=== PATIENT | female | born 1980 | race African-American/Black ===

== ENCOUNTER 2017-08-22 00:09 | Emergency (ER) | payer OTHER ==
--- NOTE | 2017-08-22 00:31 | PDOC ---
History of Present Illness - General History Source: Patient Exam Limitations: No Limitations - History of Present Illness Initial Comments: 08/22/17 01:47 The patient is a 37 year old female (smoker), with no significant past medical history, who presents to the emergency department with, intermittent chest pain beginning today. The patient reports the intermittent chest pain radiates down the right arm and up to her neck. The patient reports mild associated shortness of breath secondary to the chest pain. The patient reports she has history of hypertension and DM in her family. The patient reports she has heavy menstrual periods that have been occurring more frequently with her LMP approx. 2 days ago. She denies recent fevers, chills, headache or dizziness. She denies recent nausea, vomit, diarrhea or constipation. She denies recent dysuria, frequency, urgency or hematuria. She denies recent swelling or calf tenderness. Allergies: NKA Primary Care Physician: Dr. Antonio Jimenez <Farooq Doty - Last Filed: 08/22/17 01:47> <Kelly Andrew - Last Filed: 08/22/17 04:35> - General Chief Complaint: Chest Pain Stated Complaint: CHEST PAIN Time Seen by Provider: 08/22/17 00:27 Past History <Farooq Doty - Last Filed: 08/22/17 01:47> <Kelly Andrew - Last Filed: 08/22/17 04:35> - Past Medical History Allergies/Adverse Reactions: Allergies Allergy/AdvReac Type Severity Reaction Status Date / Time No Known Allergies Allergy Verified 08/22/17 00:30 Home Medications: Ambulatory Orders NK [No Known Home Medication] 08/22/17 Review of Systems - Review of Systems Comments:: 08/22/17 01:49 GENERAL/CONSTITUTIONAL: No fever or chills. No weakness. HEAD, EYES, EARS, NOSE AND THROAT: No change in vision. No ear pain or discharge. No sore throat. CARDIOVASCULAR: +Chest pain. +Mild shortness of breath. RESPIRATORY: No cough, wheezing, or hemoptysis. GASTROINTESTINAL: No nausea, vomiting, diarrhea or constipation. GENITOURINARY: No dysuria, frequency, or change in urination. MUSCULOSKELETAL: No joint or muscle swelling or pain. No neck or back pain. SKIN: No rash NEUROLOGIC: No headache, vertigo, loss of consciousness, or change in strength/ sensation. ENDOCRINE: No increased thirst. No abnormal weight change. HEMATOLOGIC/LYMPHATIC: No anemia, easy bleeding, or history of blood clots. ALLERGIC/IMMUNOLOGIC: No hives or skin allergy. <Farooq Doty - Last Filed: 08/22/17 01:47> *Physical Exam - Vital Signs Last Vital Signs Temp Pulse Resp BP Pulse Ox 97.6 F 74 20 124/92 99 08/22/17 00:30 08/22/17 00:30 08/22/17 00:30 08/22/17 00:30 08/22/17 00:30 - Physical Exam Comments: 08/22/17 01:50 GENERAL: +Very pale lips, whiter than pink. Awake, alert, and fully oriented, in no acute distress HEAD: No signs of trauma EYES: PERRLA, EOMI, sclera anicteric, conjunctiva clear ENT: Auricles normal inspection, hearing grossly normal, nares patent, oropharynx clear without exudates. Moist mucosa NECK: Normal ROM, supple, no lymphadenopathy, JVD, or masses LUNGS: Breath sounds equal, clear to auscultation bilaterally. No wheezes, and no crackles HEART: Regular rate and rhythm, normal S1 and S2, no murmurs, rubs or gallops ABDOMEN: Soft, nontender, normoactive bowel sounds. No guarding, no rebound. No masses EXTREMITIES: Normal range of motion, no edema. No clubbing or cyanosis. No cords, erythema, or tenderness NEUROLOGICAL: Cranial nerves II through XII grossly intact. Normal speech, normal gait SKIN: Warm, Dry, normal turgor, no rashes or lesions noted. <Farooq Doty - Last Filed: 08/22/17 01:47> Procedures - Joint Reduction Left Progress: 08/22/17 01:44 Follow with podiatrisy <Kelly Andrew - Last Filed: 08/22/17 04:35> ED Treatment Course - LABORATORY CBC & Chemistry Diagram: 08/22/17 01:44 08/22/17 01:44 <Kelly Andrew - Last Filed: 08/22/17 04:35> *DC/Admit/Observation/Transfer - Attestations Scribe Attestion: 08/22/17 01:51 Documentation prepared by Farooq Doty, acting as medical donation professional for Kelly Andrew MD. <Farooq Doty - Last Filed: 08/22/17 01:47> <Kelly Andrew - Last Filed: 08/22/17 04:35> - Referrals Referrals: Antonio Jimenez MD [Primary Care Provider] -
[2017-08-22 01:00] VITALS: BMI 22.3
[2017-08-22] MEDS ORDERED: ONDANSETRON *ODT* 4 MG TABLET SL ONE (01:50)
[2017-08-22] MEDS ORDERED: ONDANSETRON *ODT* 4 MG TABLET ONE (01:51)
[2017-08-22 01:55] LABS: BASO % 0.8 % (0-2.0); EOS % 5.8 % (0-4.5); HEMATOCRIT 24.4 % (32.4-45.2); HEMOGLOBIN 7.3 GM/dL (10.7-15.3); LYMPH % 32.5 % (8-40); MCHC 29.9 g/dl (32.0-36.0); MEAN CELL VOLUME 58.9 fl (80-96); MEAN PLT VOLUME 8.7 fl (7.5-11.1); MONO % 9.4 % (3.8-10.2); NEUT % 51.5 % (42.8-82.8); PLATELET COUNT 273 K/MM3 (134-434); RBC 4.14 M/mm3 (3.60-5.2); RDW 19.8 % (11.6-15.6); WHITE BLOOD COUNT 5.5 K/mm3 (4.0-10.0)
[2017-08-22 01:59] LABS: ADD RBC MORPHOLOGY YES; MCH 17.6 pg (25.7-33.7)
[2017-08-22 02:01] LABS: ANISOCYTOSIS 1+
[2017-08-22 02:12] LABS: INR 1.01 (0.82-1.09); PROTHROMBIN TIME (PATIENT) 11.4 SEC (9.98-11.88)
[2017-08-22 02:39] LABS: ALBUMIN 3.2 g/dl (3.4-5.0); ANION GAP 4 (8-16); BILIRUBIN,TOTAL 0.2 mg/dL (0.2-1.0); BLOOD UREA NITROGEN 13 mg/dL (7-18); CALCIUM 8.1 mg/dL (8.5-10.1); CHLORIDE 108 mmol/L (98-107); CO2 28 mmol/L (21-32); GLUCOSE,RANDOM 89 mg/dL (74-106); POTASSIUM 4.1 mmol/L (3.5-5.1); SGOT/AST 26 U/L (15-37); SGPT/ALT 20 U/L (12-78); SODIUM 140 mmol/L (136-145); TOT PROT 7.1 g/dl (6.4-8.2)
[2017-08-22 02:41] LABS: ALK PHOS 46 U/L (45-117)
[2017-08-22 08:48] LABS: BASO % 0.7 % (0-2.0); EOS % 5.7 % (0-4.5); HEMOGLOBIN 7.3 GM/dL (10.7-15.3); LYMPH % 42.3 % (8-40); MCHC 29.2 g/dl (32.0-36.0); MEAN CELL VOLUME 59.3 fl (80-96); MEAN PLT VOLUME 8.3 fl (7.5-11.1); MONO % 12.6 % (3.8-10.2); NEUT % 38.7 % (42.8-82.8); PLATELET COUNT 261 K/MM3 (134-434); RBC 4.22 M/mm3 (3.60-5.2); WHITE BLOOD COUNT 5.8 K/mm3 (4.0-10.0)
[2017-08-22 08:51] LABS: MCH 17.3 pg (25.7-33.7)
--- NOTE | 2017-08-22 09:17 | PDOC ---
*Physical Exam - Vital Signs Last Vital Signs Temp Pulse Resp BP Pulse Ox 97.6 F 74 20 124/92 99 08/22/17 00:30 08/22/17 00:30 08/22/17 00:30 08/22/17 00:30 08/22/17 00:30 - Physical Exam Comments: 08/22/17 09:11 "GENERAL: Awake, alert, and fully oriented, in no acute distress HEAD: No signs of trauma EYES: PERRLA, EOMI, sclera anicteric, conjunctiva clear ENT: Auricles normal inspection, hearing grossly normal, nares patent, oropharynx clear without exudates. Moist mucosa NECK: Nontender, no stepoffs, Normal ROM, supple, no lymphadenopathy, JVD, or masses LUNGS: Breath sounds equal, clear to auscultation bilaterally. No wheezes, and no crackles HEART: Regular rate and rhythm, normal S1 and S2, no murmurs, rubs or gallops ABDOMEN: Soft, nontender, normoactive bowel sounds. No guarding, no rebound. No masses EXTREMITIES: Normal range of motion, no edema. No clubbing or cyanosis. No cords, erythema, or tenderness NEUROLOGICAL: Cranial nerves II through XII intact. 5/5 strength and sensation in all extremities, Normal speech, normal gait SKIN: Warm, Dry, normal turgor, no rashes or lesions noted. " ED Treatment Course - LABORATORY CBC & Chemistry Diagram: 08/22/17 08:30 08/22/17 01:44 - ADDITIONAL ORDERS Additional order review: Laboratory Results 08/22/17 08/22/17 08/22/17 01:44 01:44 01:44 PT with INR INR Sodium 140 Potassium 4.1 Chloride 108 H Carbon Dioxide 28 Anion Gap 4 L BUN 13 Creatinine 1.0 Creat Clearance w eGFR > 60 Random Glucose 89 Calcium 8.1 L Total Bilirubin 0.2 AST 26 ALT 20 Alkaline Phosphatase 46 Creatine Kinase 98 Troponin I < 0.02 Total Protein 7.1 Albumin 3.2 L Serum , Qual Negative Blood Type B POSITIVE Antibody Screen Negative 08/22/17 01:44 PT with INR 11.40 INR 1.01 Sodium Potassium Chloride Carbon Dioxide Anion Gap BUN Creatinine Creat Clearance w eGFR Random Glucose Calcium Total Bilirubin AST ALT Alkaline Phosphatase Creatine Kinase Troponin I Total Protein Albumin Serum , Qual Blood Type Antibody Screen 08/22/17 08/22/17 08:30 01:44 RBC 4.22 4.14 MCV 59.3 L 58.9 L MCHC 29.2 L 29.9 L RDW 20.0 H 19.8 H MPV 8.3 8.7 Neutrophils % 38.7 L D 51.5 Lymphocytes % 42.3 H D 32.5 Monocytes % 12.6 H 9.4 Eosinophils % 5.7 H 5.8 H Basophils % 0.7 0.8 - Medications Given in the ED: ED Medications Discontinued Medications Generic Name Dose Route Start Last Admin Trade Name Donald PRN Reason Stop Dose Admin Ondansetron HCl 8 mg 08/22/17 01:50 08/22/17 01:50 Zofran Odt - SL 08/22/17 01:51 8 mg NOW ONE Administration Medical Decision Making - Medical Decision Making 08/22/17 09:12 Sign out taken from Dr. Andrew at 7am. 37 F with chest pain. - CXR and trop negative - Pt found to have Hb 7.3 - Pt reports known h/o anemia but is unsure of her last CBC - Repeat CBC after 7 hours stable, with Hb 7.3 - Pt reassessed, now reports resolution of chest pain. - Rpt trop negative - Pt well appearing, with normal vitals. Clinically stable for DC. I discussed the physical exam findings, ancillary test results and final diagnoses with the patient. I answered all of the patient's questions. The patient was satisfied with the care received and felt comfortable with the discharge plan and treatment plan. The patient agrees to follow up with the primary care physician within 24-72 hours. *DC/Admit/Observation/Transfer Diagnosis at time of Disposition: Anemia - Discharge Dispostion Disposition: HOME - Referrals Referrals: Antonio Jimenez MD [Primary Care Provider] - - Patient Instructions Printed Discharge Instructions: DI for Atypical Chest Pain Additional Instructions: Please follow up with your primary doctor immediately for further evaluation of your chest pain and anemia. Your blood count showed a hemoglobin of 7.3 today. This was stable over 8 hours , which means you are likely not having any significant blood loss at the moment. However, if you experience any chest pain, shortness of breath, lightheadedness , or any other concerning symptoms, return to the ER immediately. Otherwise, make an appointment with your primary doctor within 48 hours to have your bloodwork rechecked. - Post Discharge Activity - Attestations Physician Attestion: 08/22/17 09:17 I, Dr. Edin Bautista MD, attest that this document has been prepared under my direction and personally reviewed by me in its entirety. I further attest, that it accurately reflects all work, treatment, procedures and medical decision -making performed by me.
[2017-08-22 09:26] VITALS: BP 115/73; PULSE 73; TEMP 98.1
--- NOTE | 2017-08-22 15:10 | EKG ---
Test Reason : Blood Pressure : / mmHG Vent. Rate : 073 BPM Atrial Rate : 073 BPM P-R Int : 144 ms QRS Dur : 078 ms QT Int : 380 ms P-R-T Axes : 055 048 050 degrees QTc Int : 418 ms NORMAL SINUS RHYTHM NORMAL ECG NO PREVIOUS ECGS AVAILABLE Confirmed by Brandon Gonzalez ([id number]) on 08/22/2017 3:10:17 PM Referred By: Confirmed By:Brandon Gonzalez
== END 2017-08-22 09:34 | disposition home or self-care (01) ==
LOC: JER 00:09
DX: D64.9 Anemia, unspecified (principal)
CPT/HCPCS: 36415; 80053; 82550; 84484; 84703; 85025; 85610; 86850; 86900; 86901; 93005; 93010; 99282-25

== ENCOUNTER 2018-03-09 14:45 | Inpatient (IN) | payer OTHER ==
--- NOTE | 2018-03-09 14:58 | PDOC ---
Rapid Medical Evaluation Time Seen by Provider: 03/09/18 14:53 Medical Evaluation: Allergies Allergy/AdvReac Type Severity Reaction Status Date / Time lactose Allergy Verified 11/24/17 14:46 I have performed a brief in-person evaluation of this patient. The patient presents with a chief complaint of: sent in by doctor for possible blood transfusion. Have had transfusions in the past for anemia. Hx of uterine fibroids and currently has vaginal bleeding. Pertinent physical exam findings: none I have ordered the following: labs The patient will proceed to the ED for further evaluation. Discharge Disposition - Diagnosis Anemia - Referrals - Patient Instructions - Post Discharge Activity
--- NOTE | 2018-03-09 15:49 | PDOC ---
History of Present Illness - General Chief Complaint: Revisit, Lab Variance Stated Complaint: PCP SENT/BLOOD TRANSFUSION Time Seen by Provider: 03/09/18 14:53 History Source: Patient Exam Limitations: No Limitations - History of Present Illness Initial Comments: 03/09/18 16:12 37 year old female A3 with PMH uterine fibroids, anemia, blood transfusion sent to ED by PCP for low hemoglobin. She complains of vaginal bleeding since yesterday, requiring 18 pads a day, with clots. She also complains of lower abdominal pain, pelvic pain, lightheadedness, dizziness, blurry vision, headache , PARKER, generalized weakness. She denies nausea, vomiting, diarrhea, chest pain. PCP - Dr. Jimenez Allergies - Lactose Past History - Past Medical History Allergies/Adverse Reactions: Allergies Allergy/AdvReac Type Severity Reaction Status Date / Time lactose Allergy Verified 03/09/18 14:56 Anemia: Yes COPD: No Other medical history: fibroids - Suicide/Smoking/Psychosocial Hx Smoking History: Current every day smoker Have you smoked in the past 12 months: Yes Number of Cigarettes Smoked Daily: 5 Information on smoking cessation initiated: No Hx Alcohol Use: No Drug/Substance Use Hx: No Substance Use Type: None Review of Systems - Review of Systems Able to Perform ROS?: Yes Comments:: 03/09/18 16:18 General: admits to generalized weakness. denies fever, chills, night sweats. HEENT: denies sore throat, rhinorrhea, ear pain. Heart: denies chest pain, palpitations, syncope, lower extremity swelling, diaphoresis. Respiratory: admits to shortness of breath, PARKER. denies cough, sputum production , hematemesis. Abdomen: admits to abdominal pain. denies nausea, vomiting, diarrhea, constipation, blood in stool. : admits to vaginal bleeding and pelvic pain. denies dysuria, increased urinary frequency, hematuria, urinary incontinence, flank pain. Back: denies back pain, flank pain. Musculoskeletal: denies joint pain, muscle pain, joint swelling. Neurological: admits to headache and dizzines. denies numbness, tingling, weakness. Skin: denies rash, laceration, abrasion. *Physical Exam - Vital Signs Last Vital Signs Temp Pulse Resp BP Pulse Ox 98.8 F 88 17 132/78 100 03/09/18 14:54 03/09/18 14:54 03/09/18 14:54 03/09/18 14:54 03/09/18 14:54 - Physical Exam Comments: 03/09/18 16:19 Appearance: comfortable. HEENT: head is normocephalic, atraumatic. EOMI. PERRLA. pale conjunctiva. Neck: supple. Full ROM. Heart: regular rhythm. no murmurs, rubs or gallops. No pericardial friction rub. Lungs: clear to auscultation bilaterally. no crackles, rhonchi or wheezing. no stridor. Abdomen: soft, flat. tenderness to palpation of suprapubic area and LLQ. normal bowel sounds. no rebound, guarding, masses. Extremities: Peripheral pulses intact. No lower extremity edema. Neurological: Alert. Oriented x3. CN 2-12 grossly intact. Moves all four extremities. ED Treatment Course - LABORATORY CBC & Chemistry Diagram: 03/09/18 16:09 03/09/18 16:09 Medical Decision Making - Medical Decision Making 03/09/18 16:23 37 year old female with PMH uterine fibroids, anemia requiring blood transfusion sent to ED by PCP for low hgb. Initial Vital Signs Temp Pulse Resp BP Pulse Ox 98.8 F 88 17 132/78 100 03/09/18 14:54 03/09/18 14:54 03/09/18 14:54 03/09/18 14:54 03/09/18 14:54 -Afebrile. No tachycardia. No hypotension. No hypoxia. -Pending labs, urine test, pelvic examination, TVUS. 03/09/18 17:54 -Hgb 5.4 -2 Units PRBC ordered -Pelvic examination performed, no pooling of blood, cervix not visualized. On bi -manual examination tenderness to left adnexa, possible fibroid palpated. -OBGYN consulted. I spoke with Dr. Gonzalez, who will accept the consult. 03/09/18 18:13 -UA negative for UTI or blood. -Pending TVUS. -Pending EKG. -Pending urine preg. 03/09/18 18:54 -Urine test negative. -Pt will be admitted for anemia requiring blood transfusion. 03/09/18 19:06 TVUS report - small uterine fibroid. 03/09/18 19:[address] Lim, who will take over care for the patient. The patient will be admitted to Dr. Kwon. *DC/Admit/Observation/Transfer Diagnosis at time of Disposition: Anemia, History of uterine fibroid, Vaginal bleeding - Discharge Dispostion Condition at time of disposition: Guarded Decision to Admit order: Yes - Referrals Referrals: Antonio Jimenez MD [Primary Care Provider] - - Patient Instructions - Post Discharge Activity
[2018-03-09] MEDS ORDERED: ACETAMINOPHEN 1000 MG/100 ML VIAL (NON FORMULARY) IVPB ONE (16:12)
[2018-03-09 16:55] LABS: BASO % 0.8 % (0-2.0); EOS % 2.2 % (0-4.5); HEMATOCRIT 18.7 % (32.4-45.2); LYMPH % 53.7 % (8-40); MCHC 28.7 g/dl (32.0-36.0); MEAN CELL VOLUME 54.7 fl (80-96); MEAN PLT VOLUME 8.7 fl (7.5-11.1); MONO % 12.5 % (3.8-10.2); NEUT % 30.8 % (42.8-82.8); PLATELET COUNT 280 K/MM3 (134-434); RBC 3.41 M/mm3 (3.60-5.2); RDW 20.6 % (11.6-15.6); WHITE BLOOD COUNT 5.3 K/mm3 (4.0-10.0)
--- NOTE | 2018-03-09 17:02 | PDOC ---
History of Present Illness - General Chief Complaint: Revisit, Lab Variance Stated Complaint: PCP SENT/BLOOD TRANSFUSION Time Seen by Provider: 03/09/18 14:53 Past History - Past Medical History Allergies/Adverse Reactions: Allergies Allergy/AdvReac Type Severity Reaction Status Date / Time lactose Allergy Verified 03/09/18 14:56 Home Medications: Ambulatory Orders Fluconazole [Diflucan] 150 mg PO ONCE #1 tablet 11/24/17 Ibuprofen 800 mg PO ACDIN 7 Days #21 tablet 11/24/17 Sulfamethoxazole/Trimethoprim [Bactrim Ds -] 1 tab PO BID #14 tablet 11/24/17 Anemia: Yes COPD: No Other medical history: fibroids - Suicide/Smoking/Psychosocial Hx Smoking History: Current every day smoker Have you smoked in the past 12 months: Yes Number of Cigarettes Smoked Daily: 5 Information on smoking cessation initiated: No Hx Alcohol Use: No Drug/Substance Use Hx: No Substance Use Type: None *Physical Exam - Vital Signs Last Vital Signs Temp Pulse Resp BP Pulse Ox 98.8 F 88 17 132/78 100 03/09/18 14:54 03/09/18 14:54 03/09/18 14:54 03/09/18 14:54 03/09/18 14:54 ED Treatment Course - LABORATORY CBC & Chemistry Diagram: 03/09/18 16:09 03/09/18 16:09 *DC/Admit/Observation/Transfer Diagnosis at time of Disposition: Anemia - Referrals Referrals: Antonio Jimenez MD [Primary Care Provider] - - Patient Instructions - Post Discharge Activity
--- NOTE | 2018-03-09 17:04 | PDOC ---
Attending Attestation - Resident Resident Name: Madonna Gramajo - ED Attending Attestation I have performed the following: I have examined & evaluated the patient, The case was reviewed & discussed with the resident, I agree w/resident's findings & plan, Exceptions are as noted - HPI HPI: 03/09/18 17:43 The patient is a 37 year old A3 female with a past medical history of uterine fibroids c/b anemia requiring blood transfusions who presents to the emergency department for evaluation of low hemoglobin. The patient reports vaginal bleeding and lower abdominal pain since yesterday. She reports associated symptoms of dyspnea on exertion, generalized weakness, gradual generalized headache, pelvic pain, and lightheadness. Patient was sent to the emergency department by her PCP due to anemia. Of note, patient states she has required 18 pads/day. The patient denies chest pain, fever, chills, nausea, vomiting, diarrhea, and constipation. Allergies: Lactose PCP: Dr. Antonio Jimenez - Physicial Exam PE: 03/09/18 17:45 GENERAL: Awake, alert, and fully oriented, in no acute distress EYES: PERRLA, EOMI, sclera anicteric, pale conjunctiva ENT: Auricles normal inspection, hearing grossly normal, nares patent, oropharynx clear without exudates. Moist mucosa LUNGS: Breath sounds equal, clear to auscultation bilaterally. No wheezes, and no crackles HEART: Regular rate and rhythm, normal S1 and S2, no murmurs, rubs or gallops ABDOMEN: Soft, nontender, normoactive bowel sounds. No guarding, no rebound. No masses PELVIC: see Dr. Gramajo note EXTREMITIES: Normal range of motion, no edema. No clubbing or cyanosis. No cords , erythema, or tenderness BACK: No midline spinal tenderness in cervical/thoracic/lumbar region NEUROLOGICAL: Normal speech, cranial nerves intact, negative pronator drift, 5/ 5 strength in all 4 extremities, normal sensation to light touch in all 4 extremities, normal cerebellar exam, normal gait, normal reflexes and tone SKIN: Warm, Dry, normal turgor, no rashes or lesions noted. - Medical Decision Making 03/09/18 17:47 37yo F hx fibroids c/b anemia presents to the ED with symptoamtic anemia, hgb 5.4. Plan -transfuse -labs -c/s HYDRAULIC BLOCKER -admit
[2018-03-09 17:14] LABS: ALBUMIN 3.2 g/dl (3.4-5.0); ANION GAP 8 (8-16); BLOOD UREA NITROGEN 11 mg/dL (7-18); CALCIUM 8.5 mg/dL (8.5-10.1); CHLORIDE 110 mmol/L (98-107); CO2 25 mmol/L (21-32); CREATININE 0.8 mg/dL (0.55-1.02); GLUCOSE,RANDOM 80 mg/dL (74-106); POTASSIUM 3.9 mmol/L (3.5-5.1); SGOT/AST 34 U/L (15-37); SGPT/ALT 24 U/L (12-78); SODIUM 143 mmol/L (136-145)
[2018-03-09 17:15] LABS: ALK PHOS 49 U/L (45-117); BILIRUBIN,TOTAL 0.4 mg/dL (0.2-1.0); TOT PROT 7.4 g/dl (6.4-8.2)
[2018-03-09 17:26] LABS: MCH 15.7 pg (25.7-33.7)
[2018-03-09 17:28] LABS: HEMOGLOBIN 5.4 GM/dL (10.7-15.3)
[2018-03-09] MEDS ORDERED: ACETAMINOPHEN INJECTION 100 ML IVPB ONE (17:57)
[2018-03-09 18:08] LABS: URINE APPEARANCE SLCLOUDY; URINE BILIRUBIN NEGATIVE (<2.0 mg/dL); URINE COLOR LTYELLOW; URINE GLUCOSE (UA) NEGATIVE (NEGATIVE); URINE KETONE NEGATIVE (NEGATIVE); URINE LEUK ESTERASE NEGATIVE (NEGATIVE); URINE NITRITE NEGATIVE (NEGATIVE); URINE PROTEIN NEGATIVE (NEGATIVE)
--- NOTE | 2018-03-09 21:23 | HP ---
CHIEF COMPLAINT: vaginal bleeding HISTORY OF PRESENT ILLNESS: 37 year old female () with a history of anemia and uterine fibroid presents for excessive vaginal bleeding and abdominal pain for 1 day. She states that she had to use an entire box of pads over the past day and soaked each one. Reports that she has been having abnormal bleeding for one year duration but it had not gotten worse until yesterday. She reports lower abdominal pain, non- radiating bilaterally and rates it at a 5/10 in severity. Does not associate it with food or any other inciting cause. Reports having blood transfusions over 10 years ago during one of her pregnancies. Denies chest pain, SOB, nausea, vomiting, diarrhea, fevers. Reports being cold. ER course was notable for: (1) Hgb 5.4 (2) (3) Recent Travel: denies PAST MEDICAL HISTORY: anemia, fibroid PAST SURGICAL HISTORY: 2 C sections Social History: Smokin cigarettes a day for 6 years Alcohol: denies Drugs: denies Family History: DM and HTN in mother, DM/HTN in father Allergies lactose Allergy (Verified 03/09/18 14:56) HOME MEDICATIONS: REVIEW OF SYSTEMS CONSTITUTIONAL: Absent: fever, chills, diaphoresis, generalized weakness, malaise, loss of appetite, weight change HEENT: Absent: rhinorrhea, nasal congestion, throat pain, throat swelling, difficulty swallowing, mouth swelling, ear pain, eye pain, visual changes CARDIOVASCULAR: Absent: chest pain, syncope, palpitations, irregular heart rate, lightheadedness , peripheral edema RESPIRATORY: Absent: cough, shortness of breath, dyspnea with exertion, orthopnea, wheezing, stridor, hemoptysis GASTROINTESTINAL: Absent: abdominal pain, abdominal distension, nausea, vomiting, diarrhea, constipation, melena, hematochezia GENITOURINARY: Absent: dysuria, frequency, urgency, hesitancy, hematuria, flank pain, genital pain MUSCULOSKELETAL: Absent: myalgia, arthralgia, joint swelling, back pain, neck pain SKIN: Absent: rash, itching, pallor HEMATOLOGIC/IMMUNOLOGIC: Absent: easy bleeding, easy bruising, lymphadenopathy, frequent infections ENDOCRINE: Absent: unexplained weight gain, unexplained weight loss, heat intolerance, cold intolerance NEUROLOGIC: Absent: headache, focal weakness or paresthesias, dizziness, unsteady gait, seizure, mental status changes, bladder or bowel incontinence PSYCHIATRIC: Absent: anxiety, depression, suicidal or homicidal ideation, hallucinations. PHYSICAL EXAMINATION Vital Signs - 24 hr 03/09/18 14:54 Temperature 98.8 F Pulse Rate 88 Respiratory 17 Rate Blood Pressure 132/78 O2 Sat by Pulse 100 Oximetry (%) GENERAL: A&Ox3, no acute distress EYES: PERRLA, EOMI ENT: Moist mucus membranes NECK: No JVD LUNGS: CTA, no wheezes HEART: RRR, no murmurs ABDOMEN: Soft, mildly tender to palpation in hypogastrum, BS present MUSCULOSKELETAL: No CVA Tenderness EXTREMITIES: 2+ pulses, no edema. NEUROLOGICAL: Cranial nerves II-XII intact. Laboratory Results - last 24 hr 03/09/18 03/09/18 03/09/18 16:09 16:09 16:09 WBC 5.3 RBC 3.41 L Hgb 5.4 L* Hct 18.7 L D MCV 54.7 L MCH 15.7 L MCHC 28.7 L RDW 20.6 H Plt Count 280 MPV 8.7 Absolute Neuts (auto) 1.6 Neutrophils % 30.8 L D Lymphocytes % 53.7 H D Monocytes % 12.5 H Eosinophils % 2.2 Basophils % 0.8 Nucleated RBC % 1 H Retic Count Sodium 143 Potassium 3.9 Chloride 110 H Carbon Dioxide 25 Anion Gap 8 BUN 11 Creatinine 0.8 Creat Clearance w eGFR > 60 Random Glucose 80 Calcium 8.5 Total Bilirubin 0.4 AST 34 ALT 24 Alkaline Phosphatase 49 Total Protein 7.4 Albumin 3.2 L Urine Color Urine Appearance Urine pH Ur Specific [place] Urine Protein Urine Glucose (UA) Urine Ketones Urine Blood Urine Nitrite Urine Bilirubin Urine Urobilinogen Ur Leukocyte Esterase Urine HCG, Qual Blood Type B POSITIVE Antibody Screen Negative Crossmatch See Detail 03/09/18 03/09/18 03/09/18 16:09 17:50 17:50 WBC RBC Hgb Hct MCV MCH MCHC RDW Plt Count MPV Absolute Neuts (auto) Neutrophils % Lymphocytes % Monocytes % Eosinophils % Basophils % Nucleated RBC % Retic Count 1.45 Sodium Potassium Chloride Carbon Dioxide Anion Gap BUN Creatinine Creat Clearance w eGFR Random Glucose Calcium Total Bilirubin AST ALT Alkaline Phosphatase Total Protein Albumin Urine Color Ltyellow Urine Appearance Slcloudy Urine pH 7.0 Ur Specific [place] 1.010 Urine Protein Negative Urine Glucose (UA) Negative Urine Ketones Negative Urine Blood Negative Urine Nitrite Negative Urine Bilirubin Negative Urine Urobilinogen 2.0 H Ur Leukocyte Esterase Negative Urine HCG, Qual Negative Blood Type Antibody Screen Crossmatch ASSESSMENT/PLAN: 37 year old female () with a history of anemia and uterine fibroid presents for excessive vaginal bleeding and abdominal pain for 1 day #Severe Anemia: 2/2 vaginal bleed -type and screen -coags -transfuse 2U pRBCs -monitor H&H after 1st unit and in the AM -Transvaginal ultrasound performed showed uterine fibroid -SLD TEACHER consulted -iron supplementation #FEN -Receiving blood, 2U -replete lytes as necessary in AM -regular diet #Prophylaxis -SCDs #Disposition -admit obs Visit type - Emergency Visit Emergency Visit: Yes ED Registration Date: 03/09/18 Care time: The patient presented to the Emergency Department on the above date and was hospitalized for further evaluation of their emergent condition. - New Patient This patient is new to me today: Yes Date on this admission: 03/09/18 - Critical Care Critical Care patient: No Hospitalist Screening - Colonoscopy Questionnaire Colonoscopy Questionnaire: Colonoscopy Questionnaire - Patient: 50 - 75 years old and never had a screening colonoscopy: Unknown History of colon or rectal polyps, or CA: Unknown History of IBD, Crohn's disease or UC: Unknown History of abdominal radiation therapy as a child: Unknown - Relative: 1 with colon or rectal CA, or polyps at age 60 or younger: Unknown Colon or rectal CA diagnosed at age 45 or younger: Unknown Multiple relatives with colon or rectal CA: Unknown - Outcome: Screening Result: Negative Screen
[2018-03-09 23:18] VITALS: BMI 27.2
--- NOTE | 2018-03-10 01:10 | PN ---
Teaching Attending Note Name of Resident: Mingo Lim ATTENDING PHYSICIAN STATEMENT I saw and evaluated the patient. Chart, data, imaging reviewed. I reviewed the resident's note and discussed the case with the resident. I agree with the resident's findings and plan as documented. SUBJECTIVE: 37 year old female () with a history of anemia and uterine fibroid presents for excessive vaginal bleeding and abdominal pain for 1 day, lower abdominal pain, as well as extreme fatigue. Patient used up to 36 pads to control her bleeding. She received a blood transfusion 10 years ago for severe anemia during childbirth. OBJECTIVE: Last Vital Signs Temp Pulse Resp BP Pulse Ox 97.7 F 79 18 125/58 100 03/10/18 00:08 03/10/18 00:08 03/10/18 00:08 03/10/18 00:08 03/09/18 23:52 General- nad, nontoxic appearing HEENT- atraumatic, +scleral pallor neck -supple cv- s1+s2+ rrr chest- cta abdomen- mild lower abdominal tenderness skin - no rashes Abnormal Lab Results 03/09/18 03/09/18 03/09/18 16:09 16:09 16:09 RBC 3.41 L Hgb 5.4 L* Hct 18.7 L D MCV 54.7 L MCH 15.7 L MCHC 28.7 L RDW 20.6 H Neutrophils % 30.8 L D Lymphocytes % 53.7 H D Monocytes % 12.5 H Nucleated RBC % 1 H Chloride 110 H Albumin 3.2 L Urine Urobilinogen Crossmatch See Detail 03/09/18 17:50 RBC Hgb Hct MCV MCH MCHC RDW Neutrophils % Lymphocytes % Monocytes % Nucleated RBC % Chloride Albumin Urine Urobilinogen 2.0 H Crossmatch Transvaginal US reviewed- small uterine fibroid ASSESSMENT AND PLAN: 37yo woman with severe symptomatic anemia secondary to excessive vaginal bleeding from uterine fibroid -observation -transfuse 2 units of PRBC- aim for hgb >7g/dl (patient agrees for transfusion) -IV fluid hydration -ferrous sulfate PO bid with vit C -OBGYN evaluation - consider possible hysterectomy -SCDs for DVT ppx -
[2018-03-10] MEDS ORDERED: ACETAMINOPHEN 500 MG TABLET (FP) PO PRN (07:45)
--- NOTE | 2018-03-10 08:35 | PN ---
Physical Exam: SUBJECTIVE: Patient is a 37 y/o female with a history of fibroids who presents for anemia. She reports she is currently having vaginal bleeding but describes it as light. She woke up with a headache this morning. No acute complaints. OBJECTIVE: Vital Signs Period Temp Pulse Resp BP Sys/Pope Pulse Ox Last 24 Hr 97.7 F-98.8 F 72-88 17-18 113-145/58-78 100-100 GENERAL: The patient is awake, alert, and fully oriented, in no acute distress. EYES: PERRL, extraocular movements intact ENT: moist mucous membranes LUNGS: slight expiratory wheezes HEART: Regular rate and rhythm ABDOMEN: Soft, tenderenss to lower abdomen, nondistended EXTREMITIES: 2+ pulses, warm, well-perfused, no edema. PSYCH: Normal mood, normal affect. SKIN: Warm, dry, normal turgor, no rashes or lesions noted Laboratory Results - last 24 hr 03/09/18 03/09/18 03/09/18 16:09 16:09 16:09 WBC 5.3 RBC 3.41 L Hgb 5.4 L* Hct 18.7 L D MCV 54.7 L MCH 15.7 L MCHC 28.7 L RDW 20.6 H Plt Count 280 MPV 8.7 Absolute Neuts (auto) 1.6 Neutrophils % 30.8 L D Lymphocytes % 53.7 H D Monocytes % 12.5 H Eosinophils % 2.2 Basophils % 0.8 Nucleated RBC % 1 H Retic Count Sodium 143 Potassium 3.9 Chloride 110 H Carbon Dioxide 25 Anion Gap 8 BUN 11 Creatinine 0.8 Creat Clearance w eGFR > 60 Random Glucose 80 Calcium 8.5 Total Bilirubin 0.4 AST 34 ALT 24 Alkaline Phosphatase 49 Total Protein 7.4 Albumin 3.2 L Urine Color Urine Appearance Urine pH Ur Specific [place] Urine Protein Urine Glucose (UA) Urine Ketones Urine Blood Urine Nitrite Urine Bilirubin Urine Urobilinogen Ur Leukocyte Esterase Urine HCG, Qual Blood Type B POSITIVE Antibody Screen Negative Crossmatch See Detail 03/09/18 03/09/18 03/09/18 16:09 17:50 17:50 WBC RBC Hgb Hct MCV MCH MCHC RDW Plt Count MPV Absolute Neuts (auto) Neutrophils % Lymphocytes % Monocytes % Eosinophils % Basophils % Nucleated RBC % Retic Count 1.45 Sodium Potassium Chloride Carbon Dioxide Anion Gap BUN Creatinine Creat Clearance w eGFR Random Glucose Calcium Total Bilirubin AST ALT Alkaline Phosphatase Total Protein Albumin Urine Color Ltyellow Urine Appearance Slcloudy Urine pH 7.0 Ur Specific [place] 1.010 Urine Protein Negative Urine Glucose (UA) Negative Urine Ketones Negative Urine Blood Negative Urine Nitrite Negative Urine Bilirubin Negative Urine Urobilinogen 2.0 H Ur Leukocyte Esterase Negative Urine HCG, Qual Negative Blood Type Antibody Screen Crossmatch Active Medications Generic Name Dose Route Start Last Admin Trade Name Freq PRN Reason Stop Dose Admin Acetaminophen 500 mg 03/10/18 07:45 Tylenol - PO Q4H PRN PAIN LEVEL 6-10 Ferrous Sulfate 325 mg 03/10/18 08:00 Feosol - PO BIDWM [facility] ASSESSMENT/PLAN: Patient is a 37 y/o female with a history of fibroids who presents for anemia. #Anemia - Hgb 5.4 on presentation - 2 unit PRBC - f/u CBC; 7.7 - F/u Dr. Tello for fibroid management - continue ferrous sulfate 325 mg po - transvaginal us: small uterine fibroid - acetaminophen for headache Dispo: monitor h/h tomorrow, can mange fibroid outpatient Visit type - Emergency Visit Emergency Visit: No - New Patient This patient is new to me today: Yes Date on this admission: 03/10/18 - Critical Care Critical Care patient: No
[2018-03-10] MEDS: FERROUS SO4 325 MG TABLET (FP) PO SCH ×2 (09:11→17:53)
[2018-03-10 11:06] LABS: HEMATOCRIT 24.3 % (32.4-45.2); HEMOGLOBIN 7.7 GM/dL (10.7-15.3); MCHC 31.6 g/dl (32.0-36.0); MEAN CELL VOLUME 61.3 fl (80-96); MEAN PLT VOLUME 8.4 fl (7.5-11.1); PLATELET COUNT 214 K/MM3 (134-434); RBC 3.97 M/mm3 (3.60-5.2); RDW 30.5 % (11.6-15.6); WHITE BLOOD COUNT 6.5 K/mm3 (4.0-10.0)
[2018-03-10 11:11] LABS: MCH 19.4 pg (25.7-33.7)
[2018-03-10 11:19] LABS: ANION GAP 7 (8-16); BILIRUBIN,TOTAL 0.9 mg/dL (0.2-1.0); BLOOD UREA NITROGEN 10 mg/dL (7-18); CALCIUM 7.8 mg/dL (8.5-10.1); CHLORIDE 109 mmol/L (98-107); CO2 24 mmol/L (21-32); CREATININE 0.8 mg/dL (0.55-1.02); GLUCOSE,RANDOM 114 mg/dL (74-106); POTASSIUM 3.8 mmol/L (3.5-5.1); SGOT/AST 27 U/L (15-37); SGPT/ALT 20 U/L (12-78); SODIUM 140 mmol/L (136-145); TOT PROT 7.3 g/dl (6.4-8.2)
[2018-03-10 11:20] LABS: ALK PHOS 49 U/L (45-117)
--- NOTE | 2018-03-10 13:10 | CON.OBG ---
Consult Consult Specialty:: [employer]ARD ATTENDANT Reason for Consultation:: vaginal bleeding, anemia - History of Present Illness History of Present Illness: 37 year old female with a history of anemia, menorrhagia and uterine fibroid presents for excessive vaginal bleeding and abdominal pain, lower abdominal pain, as well as extreme fatigue/SOB/dizziness. Pt went through an entire pack of pads in 2 days to control her bleeding. She received a blood transfusion 10 years ago for severe anemia after childbirth. She was seen in her [facility] office in August for this same issue, an ultrasound showed 2 small fibroids (largest 2.27cm). An endometrial biopsy was done as well at that time showing possible polyp and benign tissue. Pap smear was normal. The patient was never able to follow up with the [facility] to discuss management/treatment options. Pt states she has been dealing with this heavy bleeding for about a year now. Since admission pt has recieved 2 units PRBC and feels much improved. Denies SOB/light headedness now. NO CP. 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 - History Source History Provided By: Patient, Medical Record Limitations to Obtaining History: No Limitations - Past Medical History Cardio/Vascular: No: HTN Pulmonary: No: Asthma Gastrointestinal: No: GERD Hepatobiliary: No: Hepatitis B, Hepatitis C Renal/: No: Cancer, UTI Reproductive: Yes: Fibroids. No: PID, Postmenopausal ...: No Heme/Onc: Yes: Anemia Psych: No: Anxiety, Bipolar, Depression - Past Surgical History Past Surgical History: Yes: Tubal Ligation - Alcohol/Substance Use Hx Alcohol Use: No - Smoking History Smoking history: Current every day smoker Have you smoked in the past 12 months: Yes Aproximately how many cigarettes per day: 5 - Social History ADL: Independent History of Recent Travel: No Home Medications - Allergies Allergies/Adverse Reactions: Allergies Allergy/AdvReac Type Severity Reaction Status Date / Time lactose Allergy Verified 03/09/18 14:56 - Home Medications Home Medications: Ambulatory Orders Ferrous Sulfate [Feosol] 325 mg PO BID 03/10/18 Review of Systems - Review of Systems Constitutional: reports: No Symptoms Eyes: reports: No Symptoms HENT: reports: No Symptoms Neck: reports: No Symptoms Cardiovascular: reports: No Symptoms Respiratory: reports: No Symptoms Gastrointestinal: reports: Abdominal Pain Genitourinary: reports: Vaginal Bleeding Breasts: reports: No Symptoms Reported Musculoskeletal: reports: No Symptoms Integumentary: reports: No Symptoms Physical Exam-[facility] Vital Signs: Vital Signs Temperature 98.1 F 03/10/18 09:00 Pulse Rate 69 03/10/18 09:00 Respiratory Rate 18 03/10/18 09:00 Blood Pressure 123/85 03/10/18 09:00 O2 Sat by Pulse Oximetry (%) 100 03/09/18 23:52 Constitutional: Yes: Well Nourished, No Distress, Calm Eyes: Yes: Conjunctiva Clear, EOM Intact, Other (eye glasses) HENT: Yes: WNL Neck: Yes: WNL Cardiovascular: Yes: WNL Gastrointestinal: Yes: Soft. No: Tenderness Renal/: Yes: Vaginal Bleeding Internal Exam Deferred: Yes Neurological: Yes: Alert, Oriented Psychiatric: Yes: Alert, Oriented Labs: CBC, BMP 03/10/18 10:20 03/10/18 10:20 Problem List - Problems (1) Anemia Code(s): D64.9 - ANEMIA, UNSPECIFIED (2) Vaginal bleeding Code(s): N93.9 - ABNORMAL UTERINE AND VAGINAL BLEEDING, UNSPECIFIED (3) Fibroid uterus Code(s): D25.9 - LEIOMYOMA OF UTERUS, UNSPECIFIED Assessment/Plan 37 y/o female with history of AUB/menorrhagia presents with heavy vaginal bleeding and anemia, small uterine fibroids on ultrasound s/p 2 units PRBC HGb now 7.7 Bleeding improving VSS Continue monitoring CBC, once Hgb stabilized pt to follow up with [facility] as outpatient to discuss definitive management of her menorrhagia/fibroids
--- NOTE | 2018-03-10 15:07 | PN ---
Teaching Attending Note Name of Resident: Judit Heredia ATTENDING PHYSICIAN STATEMENT I saw and evaluated the patient. I reviewed the resident's note and discussed the case with the resident. I agree with the resident's findings and plan as documented. SUBJECTIVE: Patient reports having pelvic pain and continued vaginal bleeding. OBJECTIVE: Vital Signs Period Temp Pulse Resp BP Sys/Pope Pulse Ox Last 24 Hr 97.5 F-98.8 F 69-88 17-20 113-145/58-85 98-100 HEART: S1S2, RRR LUNGS: Clear ABDOMES: Soft, non-tender, non-distended, normal BS EXTREMITIES: No edema Laboratory Results - last 24 hr 03/09/18 03/09/18 03/09/18 16:09 16:09 16:09 WBC 5.3 RBC 3.41 L Hgb 5.4 L* Hct 18.7 L D MCV 54.7 L MCH 15.7 L MCHC 28.7 L RDW 20.6 H Plt Count 280 MPV 8.7 Absolute Neuts (auto) 1.6 Neutrophils % 30.8 L D Lymphocytes % 53.7 H D Monocytes % 12.5 H Eosinophils % 2.2 Basophils % 0.8 Nucleated RBC % 1 H Retic Count Sodium 143 Potassium 3.9 Chloride 110 H Carbon Dioxide 25 Anion Gap 8 BUN 11 Creatinine 0.8 Creat Clearance w eGFR > 60 Random Glucose 80 Calcium 8.5 Magnesium Total Bilirubin 0.4 AST 34 ALT 24 Alkaline Phosphatase 49 Total Protein 7.4 Albumin 3.2 L Urine Color Urine Appearance Urine pH Ur Specific [place] Urine Protein Urine Glucose (UA) Urine Ketones Urine Blood Urine Nitrite Urine Bilirubin Urine Urobilinogen Ur Leukocyte Esterase Urine HCG, Qual Blood Type B POSITIVE Antibody Screen Negative Crossmatch See Detail 03/09/18 03/09/18 03/09/18 16:09 17:50 17:50 WBC RBC Hgb Hct MCV MCH MCHC RDW Plt Count MPV Absolute Neuts (auto) Neutrophils % Lymphocytes % Monocytes % Eosinophils % Basophils % Nucleated RBC % Retic Count 1.45 Sodium Potassium Chloride Carbon Dioxide Anion Gap BUN Creatinine Creat Clearance w eGFR Random Glucose Calcium Magnesium Total Bilirubin AST ALT Alkaline Phosphatase Total Protein Albumin Urine Color Ltyellow Urine Appearance Slcloudy Urine pH 7.0 Ur Specific [place] 1.010 Urine Protein Negative Urine Glucose (UA) Negative Urine Ketones Negative Urine Blood Negative Urine Nitrite Negative Urine Bilirubin Negative Urine Urobilinogen 2.0 H Ur Leukocyte Esterase Negative Urine HCG, Qual Negative Blood Type Antibody Screen Crossmatch 03/10/18 03/10/18 03/10/18 10:20 10:20 10:20 WBC 6.5 RBC 3.97 Hgb 7.7 L Hct 24.3 L D MCV 61.3 L D MCH 19.4 L D MCHC 31.6 L RDW 30.5 H Plt Count 214 D MPV 8.4 Absolute Neuts (auto) Neutrophils % Lymphocytes % Monocytes % Eosinophils % Basophils % Nucleated RBC % Retic Count 1.79 H D Sodium 140 Potassium 3.8 Chloride 109 H Carbon Dioxide 24 Anion Gap 7 L BUN 10 Creatinine 0.8 Creat Clearance w eGFR > 60 Random Glucose 114 H Calcium 7.8 L Magnesium 2.0 Total Bilirubin 0.9 AST 27 ALT 20 Alkaline Phosphatase 49 Total Protein 7.3 Albumin 3.0 L Urine Color Urine Appearance Urine pH Ur Specific [place] Urine Protein Urine Glucose (UA) Urine Ketones Urine Blood Urine Nitrite Urine Bilirubin Urine Urobilinogen Ur Leukocyte Esterase Urine HCG, Qual Blood Type Antibody Screen Crossmatch Current Medications Generic Name Dose Route Start Last Admin Trade Name Freq PRN Reason Stop Dose Admin Acetaminophen 500 mg 03/10/18 07:45 03/10/18 09:11 Tylenol - PO 500 mg Q4H PRN Administration PAIN LEVEL 6-10 Ferrous Sulfate 325 mg 03/10/18 08:00 03/10/18 09:11 Feosol - PO 325 mg BIDWM SVETA Administration ASSESSMENT AND PLAN: This is a 37 year old woman with a history of anemia, menorrhagia, uterine fibroid who presented to the ED with vaginal bleeding, lower abdominal pain, fatigue, SOB, and dizziness. 1. Symptomatic anemia, acute on chronic secondary to iron deficiency from menorrhagia and fibroids - Transfused 2 units PRBCs with improvement - Ferrous sulfate started - Monitor hemoglobin - [facility] consult appreciated - Once hemoglobin stable, can be discharged to follow up with [facility] as outpatient
[2018-03-10 16:51] LABS: HEMATOCRIT 25.2 % (32.4-45.2); HEMOGLOBIN 7.9 GM/dL (10.7-15.3); MCHC 31.4 g/dl (32.0-36.0); MEAN CELL VOLUME 61.5 fl (80-96); MEAN PLT VOLUME 8.7 fl (7.5-11.1); PLATELET COUNT 231 K/MM3 (134-434); RBC 4.09 M/mm3 (3.60-5.2); RDW 30.5 % (11.6-15.6)
[2018-03-10 16:54] LABS: MCH 19.3 pg (25.7-33.7)
[2018-03-11 06:06] LABS: SERUM IRON SATURATION 38 % (15-55); TOTAL IRON BINDING CAPACITY 483 ug/dL (250-450); UIBC 299 ug/dL (131-425)
[2018-03-11 07:48] LABS: HEMATOCRIT 26.5 % (32.4-45.2); HEMOGLOBIN 8.4 GM/dL (10.7-15.3); MCHC 31.9 g/dl (32.0-36.0); MEAN CELL VOLUME 61.9 fl (80-96); MEAN PLT VOLUME 8.4 fl (7.5-11.1); PLATELET COUNT 197 K/MM3 (134-434); RBC 4.27 M/mm3 (3.60-5.2); RDW 30.8 % (11.6-15.6); WHITE BLOOD COUNT 6.9 K/mm3 (4.0-10.0)
[2018-03-11 08:10] LABS: MCH 19.7 pg (25.7-33.7)
[2018-03-11 08:11] LABS: CHLORIDE 111 mmol/L (98-107); POTASSIUM 3.9 mmol/L (3.5-5.1); SODIUM 142 mmol/L (136-145)
[2018-03-11 08:30] LABS: ANION GAP 7 (8-16); BLOOD UREA NITROGEN 13 mg/dL (7-18); CALCIUM 8.1 mg/dL (8.5-10.1); CO2 24 mmol/L (21-32); CREATININE 0.8 mg/dL (0.55-1.02); GLUCOSE,RANDOM 73 mg/dL (74-106)
[2018-03-11] MEDS: FERROUS SO4 325 MG TABLET (FP) PO SCH (08:35)
--- NOTE | 2018-03-11 09:08 | EKG ---
Test Reason : Blood Pressure : / mmHG Vent. Rate : 077 BPM Atrial Rate : 077 BPM P-R Int : 128 ms QRS Dur : 076 ms QT Int : 368 ms P-R-T Axes : 020 043 048 degrees QTc Int : 416 ms NORMAL SINUS RHYTHM NORMAL ECG WHEN COMPARED WITH ECG OF 22-AUG-2017 00:30, NO SIGNIFICANT CHANGE WAS FOUND Confirmed by BELKIS JOHANSEN MD ([id number]) on 03/11/2018 9:08:18 AM Referred By: Confirmed By:BELKIS JOHANSEN MD
--- NOTE | 2018-03-11 10:25 | PN ---
Teaching Attending Note Name of Resident: Judit Heredia ATTENDING PHYSICIAN STATEMENT I saw and evaluated the patient. I reviewed the resident's note and discussed the case with the resident. I agree with the resident's findings and plan as documented. SUBJECTIVE: Patient denies SOB, dizziness. OBJECTIVE: Vital Signs Period Temp Pulse Resp BP Sys/Pope Pulse Ox Last 24 Hr 97.5 F-98.3 F 65-72 18-20 118-130/53-88 HEART: S1S2, RRR LUNGS: Clear ABDOMEN: Soft, non-tender, non-distended, normal BS EXTREMITIES: No edema Laboratory Results - last 24 hr 03/10/18 03/10/18 03/10/18 10:20 10:20 10:20 WBC RBC Hgb Hct MCV MCH MCHC RDW Plt Count MPV Retic Count 1.79 H D Sodium 140 Potassium 3.8 Chloride 109 H Carbon Dioxide 24 Anion Gap 7 L BUN 10 Creatinine 0.8 Creat Clearance w eGFR > 60 Random Glucose 114 H Calcium 7.8 L Magnesium 2.0 Iron 184 H TIBC 483 H Iron Saturation 38 Total Bilirubin 0.9 AST 27 ALT 20 Alkaline Phosphatase 49 Total Protein 7.3 Albumin 3.0 L 03/10/18 03/10/18 03/11/18 10:20 16:10 06:00 WBC 6.5 6.0 6.9 RBC 3.97 4.09 4.27 Hgb 7.7 L 7.9 L 8.4 L Hct 24.3 L D 25.2 L 26.5 L MCV 61.3 L D 61.5 L 61.9 L MCH 19.4 L D 19.3 L 19.7 L MCHC 31.6 L 31.4 L 31.9 L RDW 30.5 H 30.5 H 30.8 H Plt Count 214 D 231 197 MPV 8.4 8.7 8.4 Retic Count Sodium Potassium Chloride Carbon Dioxide Anion Gap BUN Creatinine Creat Clearance w eGFR Random Glucose Calcium Magnesium Iron TIBC Iron Saturation Total Bilirubin AST ALT Alkaline Phosphatase Total Protein Albumin 03/11/18 06:00 WBC RBC Hgb Hct MCV MCH MCHC RDW Plt Count MPV Retic Count Sodium 142 Potassium 3.9 Chloride 111 H Carbon Dioxide 24 Anion Gap 7 L BUN 13 Creatinine 0.8 Creat Clearance w eGFR > 60 Random Glucose 73 L Calcium 8.1 L Magnesium Iron TIBC Iron Saturation Total Bilirubin AST ALT Alkaline Phosphatase Total Protein Albumin Current Medications Generic Name Dose Route Start Last Admin Trade Name Donald PRN Reason Stop Dose Admin Acetaminophen 500 mg 03/10/18 07:45 03/10/18 09:11 Tylenol - PO 500 mg Q4H PRN Administration PAIN LEVEL 6-10 Ferrous Sulfate 325 mg 03/10/18 08:00 03/11/18 08:35 Feosol - PO 325 mg BIDWM SVTE[facility] Administration ASSESSMENT AND PLAN: This is a 37 year old woman with a history of anemia, menorrhagia, uterine fibroid who presented to the ED with vaginal bleeding, lower abdominal pain, fatigue, SOB, and dizziness. 1. Symptomatic anemia, acute on chronic secondary to iron deficiency from menorrhagia and fibroids - Transfused 2 units PRBCs with improvement - Hemoglobin stable - Continue ferrous sulfate - Ok for discharge home with follow up with Dr. Tello this week
--- NOTE | 2018-03-11 10:30 | DS ---
Physical Exam: SUBJECTIVE: Patient is a 37 y/o female with a history of fibroids who presents for anemia. She reports she is currently having vaginal bleeding but describes it as light. She woke up with a headache this morning. No acute complaints. OBJECTIVE: Vital Signs Period Temp Pulse Resp BP Sys/Pope Pulse Ox Last 24 Hr 97.5 F-98.3 F 65-72 18-20 118-130/53-88 PHYSICAL EXAM GENERAL: The patient is awake, alert, and fully oriented, in no acute distress. EYES: PERRL, extraocular movements intact ENT: moist mucous membranes LUNGS: slight expiratory wheezes HEART: Regular rate and rhythm ABDOMEN: Soft, tenderenss to lower abdomen, nondistended EXTREMITIES: 2+ pulses, warm, well-perfused, no edema. PSYCH: Normal mood, normal affect. SKIN: Warm, dry, normal turgor, no rashes or lesions noted LABS Laboratory Results - last 24 hr 03/10/18 03/10/18 03/10/18 10:20 10:20 10:20 WBC RBC Hgb Hct MCV MCH MCHC RDW Plt Count MPV Retic Count 1.79 H D Sodium 140 Potassium 3.8 Chloride 109 H Carbon Dioxide 24 Anion Gap 7 L BUN 10 Creatinine 0.8 Creat Clearance w eGFR > 60 Random Glucose 114 H Calcium 7.8 L Magnesium 2.0 Iron 184 H TIBC 483 H Iron Saturation 38 Total Bilirubin 0.9 AST 27 ALT 20 Alkaline Phosphatase 49 Total Protein 7.3 Albumin 3.0 L 03/10/18 03/10/18 03/11/18 10:20 16:10 06:00 WBC 6.5 6.0 6.9 RBC 3.97 4.09 4.27 Hgb 7.7 L 7.9 L 8.4 L Hct 24.3 L D 25.2 L 26.5 L MCV 61.3 L D 61.5 L 61.9 L MCH 19.4 L D 19.3 L 19.7 L MCHC 31.6 L 31.4 L 31.9 L RDW 30.5 H 30.5 H 30.8 H Plt Count 214 D 231 197 MPV 8.4 8.7 8.4 Retic Count Sodium Potassium Chloride Carbon Dioxide Anion Gap BUN Creatinine Creat Clearance w eGFR Random Glucose Calcium Magnesium Iron TIBC Iron Saturation Total Bilirubin AST ALT Alkaline Phosphatase Total Protein Albumin 03/11/18 06:00 WBC RBC Hgb Hct MCV MCH MCHC RDW Plt Count MPV Retic Count Sodium 142 Potassium 3.9 Chloride 111 H Carbon Dioxide 24 Anion Gap 7 L BUN 13 Creatinine 0.8 Creat Clearance w eGFR > 60 Random Glucose 73 L Calcium 8.1 L Magnesium Iron TIBC Iron Saturation Total Bilirubin AST ALT Alkaline Phosphatase Total Protein Albumin HOSPITAL COURSE: Date of Admission:03/09/18 Patient is a 37 y/o female with a history of fibroids who presents with bleeding. One month ago patient was diagnosed with a fibroid. Patient presents with vaginal bleeding and passing clots. Patient was transfused 2 units of PRBC , with an increase in hemoglobin from 5.4 to 7.9. Patients repeat hemoglobin this morning was 8.4. OBGYN evaluated patient and will see patient as an outpatient to further manage the fibroid. Patient stable to be discharged at this time. Date of Discharge: 03/11/18 Minutes to complete discharge: 32 Discharge Summary Reason For Visit: HX OF UTERINE LEIOMYOMA, ANEMIA, VAGINAL BLEEDING Current Active Problems Anemia (Chronic) Fibroid uterus (Chronic) History of uterine fibroid (Chronic) Vaginal bleeding (Chronic) Condition: Improved - Instructions Diet, Activity, Other Instructions: You were admitted for the treatment of your bleeding fibroids. We gave you two units of blood to help bring your hemoglobin (red blood cells) back up. Your hemoglobin is stable and you are ready for discharge. You can take tylenol for the pain. Please avoid NSAIDS like advil, aleve, motrin as these medications can worsen bleeding. You should follow up with your primary care physician within one week. You will need to have your hemoglobin checked in 1 week to make sure that it stays stable. Please make an appointment with your OBGYN within one week to discuss options for treatment of your fibroid. Referrals: Shira Tello MD [Staff Physician] - Antonio Jimenez MD [Primary Care Provider] - Disposition: HOME - Home Medications Comprehensive Discharge Medication List: Ambulatory Orders Ferrous Sulfate [Feosol] 325 mg PO BID 03/10/18 This patient is new to me today: No Emergency Visit: No Critical Care patient: No - Discharge Referral Referred to [facility] No
[2018-03-11 12:31] VITALS: BP 130/82; PULSE 72; TEMP 97
== END 2018-03-11 13:36 | disposition home or self-care (01) | DRG 663 ==
LOC: JER 14:45 → JERBED 19:44 → J5S 22:19
PROVIDERS: ADMIT Internal Medicine; ATTEND Internal Medicine
PROC: 30233N1 Transfusion of Nonautologous Red Blood Cells into Peripheral Vein, Percutaneous Approach (ICD-10-PCS; principal; 2018-03-09)
DX: D50.9 Iron deficiency anemia, unspecified (principal); N93.9 Abnormal uterine and vaginal bleeding, unspecified; D25.9 Leiomyoma of uterus, unspecified; F17.210 Nicotine dependence, cigarettes, uncomplicated; N92.0 Excessive and frequent menstruation with regular cycle
CPT/HCPCS: 36415; 36430; 76830-TC; 80048; 80053; 81003; 83540; 83550; 83735; 84703; 85025; 85027; 85044; 86850; 86900; 86901; 86922; 93005; 93010; 97161-GP; 99285-25; J0131; P9038; P9058